=== PATIENT | male | born 1950 | race Caucasian/White ===

== ENCOUNTER 2022-06-17 07:30 | Outpatient (CLI) | payer MEDICARE, SELFPAY | END 2022-06-17 07:31 | disposition home or self-care (01) | LOC: NFLDREF 14:57 | PROVIDERS: PCP Family Medicine; Referring Provider Family Medicine; Visit Provider Family Medicine | DX: E78.5 Hyperlipidemia, unspecified (principal); Z12.5 Encounter for screening for malignant neoplasm of prostate | CPT/HCPCS: 80053; 80061; 84153 ==

== ENCOUNTER 2023-09-28 08:04 | Outpatient (CLI) | payer MEDICARE, SELFPAY ==
--- OUTSIDE RECORDS SUMMARY | 2023-09-28 13:11 | XMS_ITS ---
Author Organization [facility] Address [address] [place] [address] Care Team Providers Care Business Liaison Manager Name Role Phone Unavailable Unavailable Unavailable Surgery Details Not on file Complications Check Surgery Details section. Procedure Estimated Blood Loss Check Surgery Details section. Procedure Findings Check Surgery Details section. Procedure Specimens Taken Check Surgery Details section.
--- OUTSIDE RECORDS SUMMARY | 2023-09-28 13:11 | XMS_ITS | Referral Summary ---
Author Organization [facility] Address [address] [place] [address] Care Team Providers Care Reed Polisher Name Role Phone Unavailable Primary Care Provider Unavailabl e Source Comments Patient records contain information from all sites at [facility]. For routine questions regarding patient records, call [phone] during business hours, M-F 8:00 AM - 5:00 PM Central Time. Record requests for emergency care only can be directed to [phone] at any time.[facility] Allergies Active Allergy Reactions Criticality Noted Date Comments Grass Pollen Other (see comments) 10/17/2021 congestion Medications Medication Sig Dispensed Refills Start Date End Date Status omega 0-wtu-npx-fish oil 1,000 mg (120 mg-180 mg) capsule daily. Active GARLIC ORAL Active tamsulosin (FLOMAX) 0.4 mg 24 hr capsule Take 1 capsule (0.4 mg total) by mouth daily. 90 capsule 3 11/04/2022 Active Active Problems Problem Noted Date Diagnosed Date Hyperlipidemia Mixed 10/17/2021 Immunizations Name Administration Dates Next Due H1N1 All Forms 03/27/2009 HZV (ZOSTAVAX) 05/04/2012 HepA Adult 05/25/2015,05/09/2005 Influenza TIV (IM) 12/03/2011,11/28/2010 Influenza, Seasonal, Injectable 11/25/2011,11/26 Influenza, Unspecified 12/28/2009 PCV13 12/22/2016 PPSV23 01/22/2018 Td (Adult), adsorbed 06/02/2003 Td, (Adult) Unspecified 05/15/2003 Tdap 05/04/2012 influenza high dose (65 year s or older) (PF) 02/16/2019,01/22/2018,12/22/2016 influenza vaccine quad (FLUZ ONE/FLUARIX) (6 months and older)(PF) 01/31/2016,03/27/2009 Social History Tobacco Use Types Packs/Day Years Used Date Smoking Tobacco: Never Smokeless Tobacco: Never Tobacco Cessation:Counseling Given: Not Answered Alcohol Use Standard Drinks/Week Comments Not Asked 0 (1 standard drink = 0.6 oz pur e alcohol) 1-2 drinks per year Nutrition Answer Date Recorded Nutrition: EVOO Fat Source Unknown 10/14 Nutrition: Servings of Fruits/Vegetables per Day Not on file 10/14/2021 Dental Answer Date Recorded Dental: Regular Dentist Unknown 10/15/19 Sex and Gender Information Value Date Recorded Sex Assigned at Male 10/17/2021 3:23 PM CDT Gender Identity Male 10/17/2021 3:23 PM CDT Sexual Orientation Straight 10/17/2021 3: 23 PM CDT Plan of Treatment Not on file
--- OUTSIDE RECORDS SUMMARY | 2023-09-28 13:11 | XMS_ITS | Clinical Summary ---
Author Organization [facility] Address [address] [place] [address] Care Team Providers Care Ultimate Hoops Referee Name Role Phone Unavailable Primary Care Provider Unavailabl e Source Comments Patient records contain information from all sites at [facility]. For routine questions regarding patient records, call [phone] during business hours, M-F 8:00 AM - 5:00 PM Central Time. Record requests for emergency care only can be directed to [phone] at any time.[facility] Allergies Active Allergy Reactions Criticality Noted Date Comments Grass Pollen Other (see comments) 10/17/2021 congestion Medications Medication Sig Dispensed Refills Start Date End Date Status omega 2-ejb-zyb-fish oil 1,000 mg (120 mg-180 mg) capsule [...] (FLUZ ONE/FLUARIX) (6 months and older)(PF) 01/31/2016,03/27/2009 Family History Medical History Relation Name Comments Heart attack Brother Prostate cancer Brother Relation Name Status Comments Brother Alive Father Mother Sister Alive Social History Tobacco Use Types Packs/Day Years [...] 3: 23 PM CDT Plan of Treatment Health Maintenance Due Date Last Done Comments CT Colonography 1951 Cologuard 1950 Colonoscopy 1950 Colorectal Cancer Screening 1950 FIT 1950 Fasting Glucose for Diabetes Screening 1950 Hepatitis C Screening 1950 Lipid (Cholesterol) Screening 1950 Zoster Vaccines (2 of 3) 06/29/2012 05/04/2012 DTaP,Tdap,and Td Vaccines (2 - Td or Tdap) 05/04/2022 05/04/2012, 06/02/2003, 05/15/2003 COVID-19 Vaccine (3 - 2022-2 4 season) 2022 06/12/2020, 05/22/2020 Depression Screening (Annual PHQ-2) 03/16/2023 Fall Risk Screen (Annual) 03/16/2023 Influenza Vaccine (#1) 2023 9, 01/22/2018, 12/22/2016, Additional history exists Hepatitis A Vaccines Completed 05/25/2015, 05/09/19 06 Pneumococcal vaccine (65+ years) Completed 01/23/20, 12/22/2016
--- OUTSIDE RECORDS SUMMARY | 2023-09-28 13:12 | XMS_ITS | Clinical Summary ---
Author Organization [facility] Address [place], [place] [address] Care Team Providers Care Apparel Rental Clerk Name Role Phone Henry Correa MD Primary Care Provider Allergies No known active allergies Medications Medication Sig Dispensed Refills Start Date End Date Status multivitamin-minerals therapeutic (THERAGRAN-M) tablet Daily Acti ve GARLIC ORAL Active [place]-9-VTF-EPA-Fish Oil (Fish Oil) 1,000 mg (120 mg-180 mg) cap Daily Active tamsulosin (FLOMAX) 0.4 mg capsuleIndications:Be nign prostatic hyperplasia with weak urinary stream Take 1 Capsule (0.4 mg) by mouth once daily after a meal. 90 Capsule 3 05/30/2021 Active Active Problems Problem Noted Date Diagnosed Date Mixed hyperlipidemia Immunizations Name Administration Dates Next Due Hepatitis A (Adult) 05/09/2005 Influenza Virus, Unspecified 12/28/2009 Influenza, IIV3 (Age >=3 years) 12/03/2011,11/28 Td (Age >=7 Years) 05/15/2003 Tdap 05/04/2012 Zoster (Zostavax-ZVL, live) 05/04/2012 Family History Medical History Relation Name Comments Cancer Father lung - smoker Cancer Mother throat/lung - s moker Cancer-colon Neg. 1 Cancer-prostate Neg. 2 Heart Disease Neg. 3 Diabetes Neg. 4 Relation Name Status Comments Father Mother Neg. 1 Neg. 2 Neg. 3 Neg. 4 Social History Tobacco Use Types Packs/Day Years Used Date Smoking Tobacco: Never Smokeless Tobacco: Never Alcohol Use Standard Drinks/Week Comments Yes 0 (1 standard drink = 0.6 oz pur e alcohol) usually one beer nightly Sex and Gender Information Value Date Recorded Sex Assigned at Not on file Gender Identity Not on file Sexual Orientation Not on file Obstetrics History Last Filed Vital Signs Vital Sign Reading Time Taken Comments Blood Pressure 126/74 02/25/2021 9:35 AM SOD STRIPPER Pulse 70 02/25/2021 9:35 AM SOD STRIPPER Temperature 36.8 ??C (98.3 ??F) 04/12/2012 4:31 PM CS T Respiratory Rate - - Oxygen Saturation 99% 02/25/2021 9:35 AM SOD STRIPPER Inhaled Oxygen Concentration - - Weight 77.3 kg (170 lb 8 oz) 05/04/2012 11:22 AM SOD STRIPPER Height 179.7 cm (5' 10.75) 05/04/2012 11:22 AM SOD STRIPPER Body Mass Index 23.95 05/04/2012 11:22 AM SOD STRIPPER Plan of Treatment Health Maintenance Due Date Last Done Comments Depression screening for age 12+ 1963 BMI (ht and wt on same day) for age 18+ 07/10/1969 Hepatitis C screening for age 18-79 07/10/1969 Zoster (shingles) series for age 50+ (2 of 3) 06/29/2012 05/04/2012 Colonoscopy through age 75 06/28/2013 06/29/2003 Medicare Wellness for age 65+ 07/10/2016 Pneumococcal series for age 65+ (1 of 1 - PCV) 07/10/2016 Lipids for age 45-75 04/29/2017 04/29/2012, 04/24/2011, 10/19/2006 Tetanus booster 05/04/2022 05/04/2012, 05/15/2003 COVID-19 vaccine series ( season) 2022 06/12/2020, 05/22/2020 Influenza for age 65+ 11/15/2023 12/03/2011 , 11/28/2010, 12/28/2009 Tdap Completed 05/04/2012 Procedures Procedure Name Priority Date/Time Associated Diagnosis Comments LIPID PANEL W REFLEX MEASURED LDL Routine 04/29/2012 7:15 AM SOD STRIPPER Mixed hyperlipidemia from Last 3 Months or Most Recently Relevant to Health Maintenance Results * (ABNORMAL) LIPID PANEL W REFLEX MEASURED LDL (04/29/2012 7:15 AM SOD STRIPPER) CHOLESTEROL,TOTAL 213(H) 100 - 199 mg/dL 04/29/2012 8:28 AM [facility] TRIGLYCERIDES 55 <150 mg/dL 04/29/2012 8:28 AM [facility] HDL CHOLESTEROL 60 >40 mg/dL 3 8:28 AM [facility] NON-HDL CHOLESTEROL 153(H) <145 mg/dl 04/29/2012 8:28 AM [facility] CHOL/HDL RATIO 3.55 <4.50 04/29/2012 8:28 AM [facility] LDL CHOLESTEROL 142(H) <=130 mg/dL 04/29/2012 8:28 AM [facility] PATIENT STATUS FASTING 04/29/2012 8:28 AM [facility] Blood specimen (specimen) BLOOD SPECIMEN / Unknown 04/29/2012 7:15 AM SOD STRIPPER 04/29/2012 7:15 AM [facility] Henry Correa MD CHEMISTRY [facility] [address] [place] [address] from Last 3 Months or Most Recently Relevant to Health Maintenance Care Teams Apparel Rental Clerk Relationship Specialty Start Date End Date Henry Correa MD [address] [place] [id number] PCP - General 08/04/05
== END 2023-09-28 08:05 | disposition home or self-care (01) ==
LOC: NFLDREF 13:09
PROVIDERS: PCP Family Medicine; Referring Provider Family Medicine; Visit Provider Family Medicine
DX: E78.5 Hyperlipidemia, unspecified (principal); N40.0 Benign prostatic hyperplasia without lower urinary tract symptoms; R74.01 Elevation of levels of liver transaminase levels; R68.82 Decreased libido; Z12.5 Encounter for screening for malignant neoplasm of prostate
CPT/HCPCS: 80061; 82947; G0103

== ENCOUNTER 2023-10-08 06:56 | Outpatient (CLI) | payer MEDICARE, SELFPAY ==
--- OUTSIDE RECORDS SUMMARY | 2023-10-08 06:59 | XMS_ITS | Clinical Summary ---
Author Organization [facility] Address [place], [place] [address] Care Team Providers Care Slip Cover Operator Name Role Phone Henry Correa MD Primary Care Provider Allergies No known active allergies Medications Medication Sig Dispensed Refills Start Date End Date Status multivitamin-minerals therapeutic (THERAGRAN-M) tablet Daily Acti ve GARLIC ORAL Active Qfqns-5-KUI-EPA-Fish Oil (Fish Oil) 1,000 mg (120 mg-180 [...] Comments Blood Pressure 126/74 02/25/2021 9:35 AM RESEARCH ENVIRONMENTAL SCIENTIST Pulse 70 02/25/2021 9:35 AM RESEARCH ENVIRONMENTAL SCIENTIST Temperature 36.8 ??C (98.3 ??F) 04/12/2012 4:31 PM CS T Respiratory Rate - - Oxygen Saturation 99% 02/25/2021 9:35 AM RESEARCH ENVIRONMENTAL SCIENTIST Inhaled Oxygen Concentration - - Weight 77.3 kg (170 lb 8 oz) 05/04/2012 11:22 AM RESEARCH ENVIRONMENTAL SCIENTIST Height 179.7 cm (5' 10.75) 05/04/2012 11:22 AM RESEARCH ENVIRONMENTAL SCIENTIST Body Mass Index 23.95 05/04/2012 11:22 AM RESEARCH ENVIRONMENTAL SCIENTIST Plan of Treatment Health Maintenance Due Date [...] REFLEX MEASURED LDL Routine 04/29/2012 7:15 AM RESEARCH ENVIRONMENTAL SCIENTIST Mixed hyperlipidemia from Last 3 Months or Most Recently Relevant to Health Maintenance Results * (ABNORMAL) LIPID PANEL W REFLEX MEASURED LDL (04/29/2012 7:15 AM RESEARCH ENVIRONMENTAL SCIENTIST) CHOLESTEROL,TOTAL 213(H) 100 - 199 mg/dL 04/29/2012 8:28 AM [facility] TRIGLYCERIDES 55 <150 mg/dL 04/29/2012 8:28 AM [facility] HDL CHOLESTEROL 60 >40 mg/dL 3 8:28 AM [facility] NON-HDL CHOLESTEROL 153(H) <145 mg/dl 04/29/2012 8:28 AM [facility] CHOL/HDL RATIO 3.55 <4.50 04/29/2012 8:28 AM [facility] LDL CHOLESTEROL 142(H) <=130 mg/dL 04/29/2012 8:28 AM [facility] PATIENT STATUS FASTING 04/29/2012 8:28 AM [facility] Blood specimen (specimen) BLOOD SPECIMEN / Unknown 04/29/2012 7:15 AM RESEARCH ENVIRONMENTAL SCIENTIST 04/29/2012 7:15 AM [facility] Henry Correa MD CHEMISTRY [facility] [address] [place] [address] from Last 3 Months or Most Recently Relevant to Health Maintenance Care Teams Slip Cover Operator Relationship Specialty Start Date End Date Henry Correa MD [address] [place] [id number] PCP - General 08/04/05
--- OUTSIDE RECORDS SUMMARY | 2023-10-08 06:59 | XMS_ITS | Referral Summary ---
Author Organization [facility] Address [address] [place] [address] Care Team Providers Care Helper Driver Name Role Phone Unavailable Primary Care Provider Unavailabl e Source Comments Patient records contain information from all sites at [facility]. For routine questions regarding patient records, call [phone] during business hours, M-F 8:00 AM - 5:00 PM Central Time. Record requests for emergency care only can be directed to [phone] at any time.[facility] Allergies Active Allergy Reactions Criticality Noted Date Comments Grass Pollen Other (see comments) 10/17/2021 congestion Medications Medication Sig Dispensed Refills Start Date End Date Status omega 7-mch-usl-fish oil 1,000 mg (120 mg-180 mg) capsule [...]
--- OUTSIDE RECORDS SUMMARY | 2023-10-08 06:59 | XMS_ITS ---
Author Organization [facility] Address [address] [place] [address] Care Team Providers Care Electric Operator Name Role Phone Unavailable Unavailable Unavailable Surgery Details Not on file Complications Check Surgery Details section. Procedure Estimated Blood Loss Check Surgery Details section. Procedure Findings Check Surgery Details section. Procedure Specimens Taken Check Surgery Details section.
--- OUTSIDE RECORDS SUMMARY | 2023-10-08 06:59 | XMS_ITS | Clinical Summary ---
Author Organization [facility] Address [address] [place] [address] Care Team Providers Care Retail Sales Merchandiser Name Role Phone Unavailable Primary Care Provider Unavailabl e Source Comments Patient records contain information from all sites at [facility]. For routine questions regarding patient records, call [phone] during business hours, M-F 8:00 AM - 5:00 PM Central Time. Record requests for emergency care only can be directed to [phone] at any time.[facility] Allergies Active Allergy Reactions Criticality Noted Date Comments Grass Pollen Other (see comments) 10/17/2021 congestion Medications Medication Sig Dispensed Refills Start Date End Date Status omega 3-hkx-gtb-fish oil 1,000 mg (120 mg-180 mg) capsule [...]
--- NOTE | 2023-10-08 08:20 | P.ANES_ITS ---
Anesthesia Charges Start Date/Time Anesthesia Start Date: 10/08/23 Anesthesia Start Time: 07:43 Stop Date/Time Anesthesia Stop Date: 10/08/23 Anesthesia Stop Time: 08:16 Summary Extremes of Age - Over 70 or under 1: PERIOPERATIVE EDUCATOR
--- NOTE | 2023-10-08 11:28 | W.ANESCHARGE ---
Anesthesia Charges Start Date/Time Anesthesia Start Date: 10/08/23 Anesthesia Start Time: 07:43 Stop Date/Time Anesthesia Stop Date: 10/08/23 Anesthesia Stop Time: 08:16 Summary Extremes of Age - Over 70 or under 1: MDA
== END 2023-10-08 06:57 | disposition home or self-care (01) ==
LOC: OP CLINIC 06:57
PROVIDERS: PCP Family Medicine; Visit Provider Surgery
DX: Z12.11 Encounter for screening for malignant neoplasm of colon (principal); K63.5 Polyp of colon; K64.8 Other hemorrhoids; Z83.719 Family history of colon polyps, unspecified
CPT/HCPCS: 00811; 45380; 45385; 88305; 99100; J2704

== ENCOUNTER 2024-09-28 07:38 | Outpatient (CLI) | payer MEDICARE, SELFPAY | END 2024-09-28 07:39 | disposition home or self-care (01) | LOC: NFLDREF 09-29 18:06 | PROVIDERS: PCP Family Medicine; Referring Provider Family Medicine; Visit Provider Family Medicine | DX: R74.01 Elevation of levels of liver transaminase levels (principal); E78.5 Hyperlipidemia, unspecified; N40.0 Benign prostatic hyperplasia without lower urinary tract symptoms; Z11.59 Encounter for screening for other viral diseases; Z12.5 Encounter for screening for malignant neoplasm of prostate | CPT/HCPCS: 80053; 80061; 82728; 82977; 86803; 87340; G0103 ==